=== PATIENT | female | born 1980 | race American Indian/Alaskan Native ===

== ENCOUNTER 2017-03-09 18:50 | Emergency (ER) | payer SELFPAY ==
[2017-03-09 19:06] VITALS: TEMP 97.4
[2017-03-09] MEDS ORDERED: Sodium Chloride 0.9% 1,000 ML IV STA (19:36)
--- NOTE | 2017-03-09 19:43 | ED PDOC ---
Arrival/HPI - General Chief Complaint: Abdominal Pain Time Seen by Provider: 03/09/17 19:27 Historian: Patient - History of Present Illness Narrative History of Present Illness (Text): 03/09/17 19:31 A 36 year old female, with no significant past medical history, presents to the emergency department complaining of abdominal discomfort with associated nausea and vomiting for the past week. Patient reports also experiencing dizziness specifically to the right-side of head for few days. Patient denies any fever, chills, diarrhea, head trauma, visual disturbance, urinary problems, dysuria, appetite changes, vaginal discharge, or any other complaints. LMP 2 weeks ago. No PMD Time/Duration: 1 week Symptom Onset: Sudden Symptom Course: Unchanged Past Medical History - Provider Review Nursing Documentation Reviewed: Yes - Infectious Disease Hx of Infectious Diseases: None - Psychiatric Hx Substance Use: No - Anesthesia Hx Anesthesia: No Family/Social History - Physician Review Nursing Documentation Reviewed: Yes Family/Social History: No Known Family HX Smoking Status: Never Smoked Hx Alcohol Use: No Hx Substance Use: No Allergies/Home Meds Allergies/Adverse Reactions: Allergies No Known Allergies Allergy (Verified 03/09/17 19:02) Review of Systems - Physician Review All systems were reviewed & negative as marked: Yes - Review of Systems Constitutional: absent: Fevers, Night Sweats, Other (no head trauma) Eyes: absent: Vision Changes (no visual disturbances) Gastrointestinal: Abdominal Pain (abdominal discomfort), Nausea, Vomiting. absent: Diarrhea, Appetite Changes Genitourinary Female: absent: Dysuria, Frequency, Urine Output Changes, Vaginal Discharge Neurological: Dizziness (specifically right side of head) Physical Exam Vital Signs Reviewed: Yes Vital Signs Temp Pulse Resp BP Pulse Ox 03/09/17 23:17 80 16 118/72 98 03/09/17 19:03 97.4 F L 68 18 112/61 100 Temperature: Afebrile Blood Pressure: Normal Pulse: Regular Respiratory Rate: Normal Appearance: Positive for: Well-Appearing Pain Distress: None Mental Status: Positive for: Alert and Oriented X 3 - Systems Exam Head: Present: Atraumatic, Normocephalic Pupils: Present: PERRL Extroacular Muscles: Present: EOMI Conjunctiva: Present: Normal Ears: Present: NORMAL TM Mouth: Present: Moist Mucous Membranes Pharnyx: Present: Normal. No: ERYTHEMA Neck: Present: Normal Range of Motion Respiratory/Chest: Present: Clear to Auscultation, Good Air Exchange. No: Respiratory Distress, Accessory Muscle Use Cardiovascular: Present: Regular Rate and Rhythm, Normal S1, S2. No: Murmurs Abdomen: Present: Normal Bowel Sounds. No: Tenderness, Distention, Peritoneal Signs Back: Present: Normal Inspection Upper Extremity: Present: Normal Inspection. No: Cyanosis, Edema Lower Extremity: Present: Normal Inspection. No: Edema Neurological: Present: GCS=15, CN II-XII Intact, Speech Normal, Motor Func Grossly Intact, Normal Sensory Function Skin: Present: Warm, Dry, Normal Color. No: Rashes Psychiatric: Present: Alert, Oriented x 3, Normal Insight, Normal Concentration Medical Decision Making ED Course and Treatment: 03/09/17 19:35 Impression: 36 year old female with abdominal discomfort with associated nausea and vomiting. Physical exam is benign. Plan: -- Head CT -- Labs -- Urinalysis -- Reassess and disposition Progress Notes: CT Head Without Intravenous Contrast FINDINGS: Brain: No hemorrhage. No significant white matter disease. No edema. Ventricles: No hydrocephalus. Bones: Skull is intact. Sinuses: No acute sinusitis. Mastoid air cells: No mastoid effusion. Motion/beam hardening limiting evaluation. IMPRESSION: No CT evidence of acute intracranial abnormality. Dictated and Authenticated by: Bee Marquez MD 03/09/2017 9:05 PM Eastern Time ([place] & [place]) CT Abdomen and Pelvis With Intravenous Contrast FINDINGS: Lower thorax: Mosaic attenuation at the lung bases. ABDOMEN: Liver: No acute abnormality as visualized. No mass. Gallbladder and bile ducts: Status post cholecystectomy with biliary ductal dilatation. Pancreas: No acute abnormality as visualized. Spleen: No splenomegaly. Adrenals: No acute abnormality as visualized. Kidneys and ureters: Symmetric enhancement. No hydronephrosis. Stomach and bowel: Limited evaluation without enteric contrast. Retained fecal material in the colon. No obstruction. Appendix: Normal caliber appendix. PELVIS: Bladder: No acute abnormality as visualized. No mass. Reproductive: 3 cm left ovarian cyst. More sensitive evaluation of the pelvic viscera can be performed with dedicated ultrasound. ABDOMEN and PELVIS: Intraperitoneal space: No free air. No significant fluid collection. Bones: Mild degenerative changes. Soft tissues: No acute abnormality as visualized. Vasculature: No abdominal aortic aneurysm. Lymph nodes: No acute abnormality as visualized. IMPRESSION: 3 cm left ovarian cyst. More sensitive evaluation of the pelvic viscera can be performed with dedicated ultrasound. Limited evaluation of bowel without enteric contrast. Retained fecal material in the colon. Status post cholecystectomy with biliary ductal dilatation. Additional details/findings as above. Dictated and Authenticated by: Bee Marquez MD 03/10/2017 12:12 AM Eastern Time ([place] & [place]) 03/10/17 00:32 On re-evaluation, patient feels better and is in no acute distress. I have discussed the results and plan with the patient, who expresses understanding. Patient in agreement with plan to be discharged home. Patient is stable for discharge. Patient was instructed to follow up with physician or return if symptoms worsen or new concerning symptoms arise. - Lab Interpretations Lab Results: 03/09/17 19:50 03/09/17 19:50 Lab Results 03/09/17 19:50: WBC 9.6, RBC 4.14, Hgb 11.9 L, Hct 37.2, MCV 89.9, MCH 28.7, MCHC 32.0, RDW 16.0 H, Plt Count 360, MPV 9.9 03/09/17 19:50: Sodium 139, Potassium 3.9, Chloride 107, Carbon Dioxide 21, Anion Gap 14, BUN 11, Creatinine 0.7, Est GFR ( Amer) > 60, Est GFR (Non- Af Amer) > 60, Random Glucose 85, Calcium 9.2, Total Bilirubin 0.5, AST 41 H, ALT 31, Alkaline Phosphatase 65, Total Protein 7.9, Albumin 4.3, Globulin 3.6, Albumin/Globulin Ratio 1.2, Lipase 57 03/09/17 19:50: Urine Color Light yellow, Urine Appearance Clear, Urine pH 6.0, Ur Specific [place] >= 1.030, Urine Protein Trace H, Urine Glucose (UA) Negative , Urine Ketones Negative, Urine Blood Negative, Urine Nitrate Negative, Urine Bilirubin Negative, Urine Urobilinogen 0.2, Ur Leukocyte Esterase Negative, Urine RBC 0 - 2, Urine WBC 1 - 3, Ur Epithelial Cells 6 - 8, Urine Bacteria Mod , Urine HCG, Qual Negative - RAD Interpretation Radiology Orders: 03/09/17 19:35 HEAD W/O CONTRAST [CT] Stat 03/09/17 22:34 ABD & PELVIS IV CONTRAST ONLY [CT] Stat - Medication Orders Current Medication Orders: Discontinued Medications Famotidine (Pepcid) 20 mg IVP STAT STA Stop: 03/09/17 19:37 Last Admin: 03/09/17 20:00 Dose: 20 mg IVP Administration Document 03/09/17 20:00 AD (Rec: 03/09/17 20:01 AD [id number]) Charges for Administration # of IVP Administrations 1 Sodium Chloride (Sodium Chloride 0.9%) 1,000 mls @ 999 mls/hr IV .Q1H1M STA Stop: 03/09/17 20:36 Last Admin: 03/09/17 20:01 Dose: 999 mls/hr eMAR Start Stop Document 03/09/17 20:01 AD (Rec: 03/09/17 20:01 AD [id number]) Intravenous Solution Start Date 03/09/17 Start Time 20:01 Ketorolac Tromethamine (Toradol) 30 mg IVP ONCE ONE Stop: 03/09/17 22:35 Last Admin: 03/09/17 23:00 Dose: 30 mg MAR Pain Assessment Document 03/09/17 23:00 AD (Rec: 03/09/17 23:00 AD [id number]) Pain Reassessment Is this a pain reassessment? No Presence of Pain Presence of Pain Yes Pain Scale Used Pain Scale Used Numeric Description Intensity of Pain at present 8 IVP Administration Document 03/09/17 23:00 AD (Rec: 03/09/17 23:00 AD [id number]) Charges for Administration # of IVP Administrations 1 - Scribe Statement The provider has reviewed the documentation as recorded by the Aiyana Malcolm Provider Scribe Attestation: All medical record entries made by the Lolaibcheikh were at my direction and personally dictated by me. I have reviewed the chart and agree that the record accurately reflects my personal performance of the history, physical exam, medical decision making, and the department course for this patient. I have also personally directed, reviewed, and agree with the discharge instructions and disposition. Disposition/Present on Arrival - Present on Arrival Any Indicators Present on Arrival: No History of DVT/PE: No History of Uncontrolled Diabetes: No Urinary Catheter: No History of Decub. Ulcer: No History Surgical Site Infection Following: None - Disposition Have Diagnosis and Disposition been Completed?: Yes Diagnosis: Ovarian cyst Disposition: HOME/ ROUTINE Disposition Time: 00:32 Patient Plan: Discharge Patient Problems: Current Active Problems Problem Status Onset Ovarian cyst Acute Condition: GOOD Discharge Instructions (ExitCare): Ovarian Cyst (ED) Additional Instructions: Take meds as prescribed/follow up with your doctor this week Prescriptions: Naproxen [Naprosyn] 500 mg PO BID PRN #14 tab PRN Reason: Pain Referrals: [facility] Luis Req, [Primary Care Provider] - Follow up with primary Forms: [employer] (Greek)
[2017-03-09 20:30] LABS: ALB/GLOB RATIO 1.2 (1.1-1.8); ALKALINE PHOSPHATASE 65 U/L (38-126); ALT/SGPT 31 U/L (7-56); AST/SGOT 41 U/L (14-36); BILIRUBIN,TOTAL 0.5 mg/dL (0.2-1.3); BLOOD UREA NITROGEN 11 mg/dL (7-21); CALCIUM 9.2 mg/dL (8.4-10.5); CARBON DIOXIDE 21 mmol/L (21-33); CHLORIDE 107 mmol/L (98-107); GFR AFRICAN-AMERICAN > 60; GLUCOSE,RANDOM 85 mg/dL (70-110); LIPASE 57 U/L (23-300); POTASSIUM 3.9 mmol/L (3.6-5.0); SODIUM 139 mmol/L (132-148); TOTAL PROTEIN 7.9 g/dL (5.8-8.3)
[2017-03-09 20:44] LABS: HEMATOCRIT 37.2 % (36.0-48.0); MEAN CELL VOLUME 89.9 fl (80.0-105.0); MEAN CORPUSCULAR HEMOGLOBIN 28.7 pg (25.0-35.0); MEAN PLATELET VOLUME 9.9 fl (7.0-11.0); WHITE BLOOD COUNT 9.6 10^3/ul (4.5-11.0)
[2017-03-09 20:45] LABS: URINE BILIRUBIN NEGATIVE (NEGATIVE); URINE BLOOD NEGATIVE (NEGATIVE); URINE GLUCOSE (UA) NEGATIVE (NEGATIVE); URINE KETONE NEGATIVE (NEGATIVE); URINE LEUKOCYTE ESTERASE NEGATIVE Leu/uL (NEGATIVE); URINE PROTEIN TRACE mg/dL (<30 mg/dL); URINE UROBILINOGEN 0.2 E.U./dL (<1 E.U./dL)
[2017-03-09 20:46] LABS: URINE APPEARANCE CLEAR (CLEAR); URINE COLOR LIGHT YELLOW (YELLOW)
--- NOTE | 2017-03-09 21:06 | CT ---
EXAM: CT Head Without Intravenous Contrast CLINICAL HISTORY: 36 years old, female; Signs and symptoms; Dizziness TECHNIQUE: Axial computed tomography images of the head/brain without intravenous contrast. All CT scans at this facility use one or more dose reduction techniques, viz.: automated exposure control; ma/kV adjustment per patient size (including targeted exams where dose is matched to indication; i.e. head); or iterative reconstruction technique. COMPARISON: No relevant prior studies available. FINDINGS: Brain: No hemorrhage. No significant white matter disease. No edema. Ventricles: No hydrocephalus. Bones: Skull is intact. Sinuses: No acute sinusitis. Mastoid air cells: No mastoid effusion. Motion/beam hardening limiting evaluation. IMPRESSION: No CT evidence of acute intracranial abnormality.
[2017-03-09 21:16] LABS: URINE RBC 0 - 2 /hpf (0-2)
[2017-03-09 21:17] LABS: URINE BACTERIA MOD (NEG)
[2017-03-09] MEDS ORDERED: Iohexol 350 MG/100 ML VIAL ONE (23:03)
[2017-03-09 23:18] VITALS: BP 118/72; PULSE 80; RESP 16; O2SAT 98
--- NOTE | 2017-03-10 00:13 | CT ---
EXAM: CT Abdomen and Pelvis With Intravenous Contrast CLINICAL HISTORY: 36 years old, female; Pain; Abdominal pain; Generalized; Prior surgery; Surgery date: 6+ months; Surgery type: HX cholecystectomy TECHNIQUE: Axial computed tomography images of the abdomen and pelvis with intravenous contrast. All CT scans at this facility use one or more dose reduction techniques, viz.: automated exposure control; ma/kV adjustment per patient size (including targeted exams where dose is matched to indication; i.e. head); or iterative reconstruction technique. Coronal and sagittal reformatted images were created and reviewed. CONTRAST: 100 mL of OMNI 350 administered intravenously. COMPARISON: No relevant prior studies available. FINDINGS: Lower thorax: Mosaic attenuation at the lung bases. ABDOMEN: Liver: No acute abnormality as visualized. No mass. Gallbladder and bile ducts: Status post cholecystectomy with biliary ductal dilatation. Pancreas: No acute abnormality as visualized. Spleen: No splenomegaly. Adrenals: No acute abnormality as visualized. Kidneys and ureters: Symmetric enhancement. No hydronephrosis. Stomach and bowel: Limited evaluation without enteric contrast. Retained fecal material in the colon. No obstruction. Appendix: Normal caliber appendix. PELVIS: Bladder: No acute abnormality as visualized. No mass. Reproductive: 3 cm left ovarian cyst. More sensitive evaluation of the pelvic viscera can be performed with dedicated ultrasound. ABDOMEN and PELVIS: Intraperitoneal space: No free air. No significant fluid collection. Bones: Mild degenerative changes. Soft tissues: No acute abnormality as visualized. Vasculature: No abdominal aortic aneurysm. Lymph nodes: No acute abnormality as visualized. IMPRESSION: 3 cm left ovarian cyst. More sensitive evaluation of the pelvic viscera can be performed with dedicated ultrasound. Limited evaluation of bowel without enteric contrast. Retained fecal material in the colon. Status post cholecystectomy with biliary ductal dilatation. Additional details/findings as above.
== END 2017-03-10 00:42 | disposition home or self-care (01) ==
LOC: ED 18:50
DX: N83.202 Unspecified ovarian cyst, left side (principal)
CPT/HCPCS: 70450; 74177; 80053; 81001; 83690; 84703; 85027; 96374; 96375; 99284; J1885; J7040; Q9967

== ENCOUNTER 2017-04-04 09:08 | Emergency (ER) | payer SELFPAY ==
[2017-04-04 09:10] VITALS: BMI 44.2
--- NOTE | 2017-04-04 09:15 | ED PDOC ---
Arrival/HPI - General Time Seen by Provider: 04/04/17 09:11 Historian: Patient - History of Present Illness Narrative History of Present Illness (Text): 04/04/17 09:15 36 y/o female, pmh including ovarian cyst, nkda, c/o anterior chest pain x 1 week with no fall or trauma. Pt. stated that she has been going to the gym recently, admits heavy lifting, been having anterior chest pain for the past 1 week, aggravated by touching, no numbness or tingling, no numbness or tingling, no tearing pain, no coughing, no night sweat, no dizziness, no rash, no other medical or psychological complaints. Past Medical History - Provider Review Nursing Documentation Reviewed: Yes - Infectious Disease Hx of Infectious Diseases: None - Psychiatric Hx Substance Use: No - Anesthesia Hx Anesthesia: No Family/Social History - Physician Review Nursing Documentation Reviewed: Yes Family/Social History: Unknown Family HX Smoking Status: Never Smoked Hx Alcohol Use: No Hx Substance Use: No Allergies/Home Meds Allergies/Adverse Reactions: Allergies No Known Allergies Allergy (Verified 04/04/17 09:10) Review of Systems - Review of Systems Constitutional: absent: Fatigue, Fevers Eyes: absent: Vision Changes ENT: absent: Hearing Changes Respiratory: absent: SOB, Cough Cardiovascular: Chest Pain Gastrointestinal: absent: Abdominal Pain, Diarrhea, Nausea, Vomiting Musculoskeletal: absent: Arthralgias, Back Pain, Myalgias Skin: absent: Rash, Pruritis, Skin Lesions Neurological: absent: Headache, Dizziness Psychiatric: absent: Anxiety, Depression, Suicidal Ideation Physical Exam Vital Signs Reviewed: Yes Vital Signs Temp Pulse Pulse Resp BP Pulse Ox 04/04/17 16:49 66 18 117/65 99 04/04/17 13:26 97.7 F 74 22 122/86 97 04/04/17 09:25 59 L 04/04/17 09:20 98.4 F 61 19 110/52 L 98 04/04/17 09:19 98.4 F 61 19 110/52 L 100 Temperature: Afebrile Pulse: Regular Respiratory Rate: Normal Appearance: Positive for: Well-Appearing, Non-Toxic, Comfortable Pain Distress: Moderate Mental Status: Positive for: Alert and Oriented X 3 - Systems Exam Head: Present: Atraumatic, Normocephalic Pupils: Present: PERRL Extroacular Muscles: Present: EOMI Conjunctiva: Present: Normal Mouth: Present: Moist Mucous Membranes Neck: Present: Normal Range of Motion Respiratory/Chest: Present: Clear to Auscultation, Good Air Exchange. No: Respiratory Distress, Accessory Muscle Use, Wheezes, Decreased Breath Sounds, Rales, Retracting, Rhonchi, Tachypneic, Tender to Palpation Cardiovascular: Present: Regular Rate and Rhythm, Normal S1, S2, Other (no pedal edema. Pain is 100% reproducible by palpating the anterior pectoralist major muscles bilaterally, no cva tenderness, no rash. ). No: Murmurs Abdomen: Present: Normal Bowel Sounds. No: Tenderness, Distention, Peritoneal Signs Back: Present: Normal Inspection Upper Extremity: Present: Normal Inspection. No: Cyanosis, Edema Lower Extremity: Present: Normal Inspection. No: Edema Neurological: Present: GCS=15, Speech Normal, Motor Func Grossly Intact, Gait Normal, Memory Normal Skin: Present: Warm, Dry, Normal Color. No: Rashes Psychiatric: Present: Alert, Oriented x 3, Normal Insight, Normal Concentration Medical Decision Making ED Course and Treatment: 04/04/17 09:17 -labs/dimer/troponin -ekg -cxr -IVF/toradol/pepcid -observe and reassess 04/04/17 13:27 -Pain decreased with the toradol and pepcid. -Urine hcg negative -EKG: SB @ 57 BPM, no ST elevation or depression, T wave inversion on lead III with no previous comparison -Labs are non-significant except d-dimer 646 -UA show no UTI. -CTA ordered, cancel chest xray -We tried multiple attempts and unable to get peripheral access even with the sonogram bed side, spoke to the technology and engineering teacher and it has been from upper extremity access. 04/04/17 17:40 -Case discussed with Dr. Joy including labs/radiology, he agreed to discharged home. -Pt. received the CTA without midline and able to obtain peripheral. -CTA: Unremarkable CT pulmonary angiogram. No pulmonary embolus. -Pt. is asymptomatic, no cardiopulmonary complaints, stable to be discharged home. -Discharge home with naproxen, pepcid, follow up with your own pmd and barrel roller operator within 2 days, no gym or exercise until clear by pmd and barrel roller operator, return to the ER for any new or worsening signs or symptoms. - Lab Interpretations Lab Results: 04/04/17 09:58 04/04/17 09:58 Lab Results 04/04/17 09:58: Sodium 140, Potassium 4.1, Chloride 107, Carbon Dioxide 24, Anion Gap 13, BUN 9, Creatinine 0.6 L, Est GFR ( Amer) > 60, Est GFR (Non -Af Amer) > 60, Random Glucose 81, Calcium 9.2, Total Bilirubin 0.5, AST 36, ALT 32, Alkaline Phosphatase 59, Lactate Dehydrogenase 405, Total Creatine Kinase 201, Troponin I < 0.01, Total Protein 7.5, Albumin 4.1, Globulin 3.5, Albumin/Globulin Ratio 1.2, Lipase 36 04/04/17 09:58: Urine Color Yellow, Urine Appearance Slight-cloudy, Urine pH 7.0 , Ur Specific [place] 1.020, Urine Protein Trace H, Urine Glucose (UA) Negative , Urine Ketones Negative, Urine Blood Negative, Urine Nitrate Negative, Urine Bilirubin Negative, Urine Urobilinogen 1.0 H, Ur Leukocyte Esterase Negative, Urine RBC 1 - 3, Urine WBC 1 - 3, Ur Epithelial Cells 3 - 4 04/04/17 09:58: D-Dimer, Quantitative 646 H 04/04/17 09:58: WBC 5.2 D, RBC 4.20, Hgb 12.0, Hct 37.5, MCV 89.3, MCH 28.6, MCHC 32.0, RDW 16.0 H, Plt Count 299, MPV 9.5, Gran % 54.7, Lymph % (Auto) 37.4 H, [place] % (Auto) 5.6, Eos % (Auto) 1.7, Baso % (Auto) 0.6, Gran # 2.82, Lymph # 1.9, [place] # 0.3, Eos # 0.1, Baso # 0.03 I have reviewed the lab results: Yes - RAD Interpretation Radiology Orders: 04/04/17 13:59 ANGIO CHEST PE PROTOCOL [CT] Stat This report is currently processing and HAS NOT BEEN OFFICIALLY SIGNED BY THE PHYSICIAN - ESTIMATED TIME OF APPROVAL IS 04/04/2017 17:42. PROCEDURE: CT Chest with contrast (Pulmonary Angiogram) HISTORY: elevated dimer, pleuritic chest pain, r/o pe COMPARISON: None available. TECHNIQUE: Axial computed tomography images were obtained of the chest in the pulmonary arterial phase of enhancement. Coronal and sagittal reformatted images were created and reviewed. Intravenous contrast dose: 100 cc Visipaque 320. Mean Hounsfield unit values in the main pulmonary artery: 249.51 Radiation dose: Total exam DLP = 447.35 mGy-cm. This CT exam was performed using one or more of the following dose reduction techniques: Automated exposure control, adjustment of the mA and/or kV according to patient size, and/or use of iterative reconstruction technique. FINDINGS: PULMONARY ARTERIES: Unremarkable. No pulmonary embolism. AORTA: No acute findings. No thoracic aortic aneurysm. LUNGS: Unremarkable. No nodule, mass or pulmonary consolidation. PLEURAL SPACES: Unremarkable. No effusion or pneuomothorax. HEART: Unremarkable. No cardiomegaly. No significant pericardial effusion. LYMPH NODES: No lymphadenopathy. BONES, CHEST WALL: Unremarkable. No fracture or destructive lesion OTHER FINDINGS: Unremarkable. IMPRESSION: Unremarkable CT pulmonary angiogram. No pulmonary embolus. Office Sweeper: Radiologist - EKG Interpretation EKG Interpretation (Text): 04/04/17 09:16 -EKG: SB @ 57 BPM, no ST elevation or depression, T wave inversion on lead III with no previous comparison, Interpreted by ED Physician: Yes Type: 12 lead EKG - Medication Orders Current Medication Orders: Sodium Chloride (Sodium Chloride 0.9%) 1,000 mls @ 100 mls/hr IV .Q10H MALLIKA Last Admin: 04/04/17 09:51 Dose: 100 mls/hr eMAR Start Stop Document 04/04/17 09:51 [email or web address] (Rec: 04/04/17 09:51 [email or web address] [id number]) Intravenous Solution Start Date 04/04/17 Start Time 09:51 End Date 04/04/17 Discontinued Medications Famotidine (Pepcid) 20 mg PO STAT STA Stop: 04/04/17 09:24 Last Admin: 04/04/17 09:50 Dose: 20 mg Ketorolac Tromethamine (Toradol) 30 mg IVP STAT STA Stop: 04/04/17 09:24 Last Admin: 04/04/17 09:50 Dose: 30 mg MAR Pain Assessment Document 04/04/17 09:50 [email or web address] (Rec: 04/04/17 09:51 [email or web address] [id number]) Pain Reassessment Is this a pain reassessment? No Sleep Is patient sleeping during reassessment? No Presence of Pain Presence of Pain Yes Pain Scale Used Pain Scale Used Numeric Location Pain Location Body Site Chest Description Description Constant Intensity of Pain at present 9 Pain Behavior Facial Grimacing Aggravating Factors Changing Position Alleviating Factors/Management Medication Techniques Alleviating Factors Medication IVP Administration Document 04/04/17 09:50 [email or web address] (Rec: 04/04/17 09:51 [email or web address] [id number]) Charges for Administration # of IVP Administrations 1 - PA / MORNING BABYSITTER / Resident Statement MD/DO has reviewed & agrees with the documentation as recorded. Disposition/Present on Arrival - Present on Arrival Any Indicators Present on Arrival: No History of DVT/PE: No History of Uncontrolled Diabetes: No Urinary Catheter: No History of Decub. Ulcer: No History Surgical Site Infection Following: None - Disposition Have Diagnosis and Disposition been Completed?: Yes Diagnosis: Atypical chest pain Disposition: HOME/ ROUTINE Disposition Time: 17:43 Patient Plan: Discharge Condition: IMPROVED Discharge Instructions (ExitCare): Chest Pain (ED) Print Language: MALIAN Additional Instructions: -Discharge home with naproxen, pepcid, follow up with your own pmd and barrel roller operator within 2 days, no gym or exercise until clear by pmd and barrel roller operator, return to the ER for any new or worsening signs or symptoms. Prescriptions: Famotidine [Pepcid] 20 mg PO BID #14 tab Naproxen 500 mg PO BID PRN #24 tab PRN Reason: Other Referrals: PCP,NO [Primary Care Provider] - Follow up with primary Kevin Roberson MD [Staff Provider] - Follow up with primary [facility] at [facility] [place] [Outside] - Follow up with primary Forms: WORK NOTE
[2017-04-04] MEDS ORDERED: Sodium Chloride 0.9% 1,000 ML IV SCH (09:30)
[2017-04-04 10:07] LABS: BASO # 0.03 K/mm3 (0.0-2.0); BASO % 0.6 % (0.0-3.0); EOS # 0.1 (0.0-0.7); EOS % 1.7 % (1.5-5.0); GRAN # 2.82 (1.4-6.5); GRAN % 54.7 % (50.0-68.0); LYMPH # 1.9 (1.2-3.4); LYMPH % 37.4 % (22.0-35.0); MEAN CELL VOLUME 89.3 fl (80.0-105.0); MEAN CORPUSCULAR HEMOGLOBIN 28.6 pg (25.0-35.0); MEAN PLATELET VOLUME 9.5 fl (7.0-11.0); MONO # 0.3 (0.1-0.6); MONO % 5.6 % (1.0-6.0); RBC 4.2 10^6/uL (3.5-6.1); WHITE BLOOD COUNT 5.2 10^3/ul (4.5-11.0)
[2017-04-04 10:08] LABS: URINE BILIRUBIN NEGATIVE (NEGATIVE); URINE BLOOD NEGATIVE (NEGATIVE); URINE GLUCOSE (UA) NEGATIVE (NEGATIVE); URINE LEUKOCYTE ESTERASE NEGATIVE Leu/uL (NEGATIVE); URINE NITRATE NEGATIVE (NEGATIVE); URINE PROTEIN TRACE mg/dL (<30 mg/dL)
[2017-04-04 10:09] LABS: URINE APPEARANCE SLIGHT-CLOUDY (CLEAR); URINE COLOR YELLOW (YELLOW)
[2017-04-04 10:16] LABS: ALB/GLOB RATIO 1.2 (1.1-1.8); ALBUMIN 4.1 g/dL (3.0-4.8); ALT/SGPT 32 U/L (7-56); AST/SGOT 36 U/L (14-36); BLOOD UREA NITROGEN 9 mg/dL (7-21); CALCIUM 9.2 mg/dL (8.4-10.5); GFR AFRICAN-AMERICAN > 60; GFR NON-AFRICAN AMERICAN > 60; LIPASE 36 U/L (23-300)
[2017-04-04 10:31] LABS: TROPONIN I < 0.01 ng/mL
[2017-04-04] MEDS ORDERED: Iohexol 350 MG/100 ML VIAL ONE (10:34)
[2017-04-04 13:27] VITALS: TEMP 97.7
[2017-04-04] MEDS ORDERED: Iodixanol 320 MG/ML 100 ML BOTTLE IV ONE (16:42)
[2017-04-04 16:50] VITALS: BP 117/65; PULSE 66; O2SAT 99
--- NOTE | 2017-04-04 17:37 | CT ---
PROCEDURE: CT Chest with contrast (Pulmonary Angiogram) HISTORY: elevated dimer, pleuritic chest pain, r/o pe COMPARISON: None available. TECHNIQUE: Axial computed tomography images were obtained of the chest in the pulmonary arterial phase of enhancement. Coronal and sagittal reformatted images were created and reviewed. Intravenous contrast dose: 100 cc Visipaque 320. Mean Hounsfield unit values in the main pulmonary artery: 249.51 Radiation dose: Total exam DLP = 447.35 mGy-cm. This CT exam was performed using one or more of the following dose reduction techniques: Automated exposure control, adjustment of the mA and/or kV according to patient size, and/or use of iterative reconstruction technique. FINDINGS: PULMONARY ARTERIES: Unremarkable. No pulmonary embolism. AORTA: No acute findings. No thoracic aortic aneurysm. LUNGS: Unremarkable. No nodule, mass or pulmonary consolidation. PLEURAL SPACES: Unremarkable. No effusion or pneuomothorax. HEART: Unremarkable. No cardiomegaly. No significant pericardial effusion. LYMPH NODES: No lymphadenopathy. BONES, CHEST WALL: Unremarkable. No fracture or destructive lesion OTHER FINDINGS: Unremarkable. IMPRESSION: Unremarkable CT pulmonary angiogram. No pulmonary embolus.
[2017-04-04 18:00] VITALS: RESP 19
--- NOTE | 2017-04-04 20:04 | CARD ---
APPROVED REPORT EKG Measurement Heart [id number] <Conclusion> Sinus bradycardia Otherwise normal ECG
== END 2017-04-04 17:59 | disposition home or self-care (01) ==
LOC: ED 09:08
DX: R07.89 Other chest pain (principal)
CPT/HCPCS: 71275; 80053; 81001; 82550; 83615; 83690; 84484; 85025; 85378; 93005; 96374; 99283; J1885; J7040; Q9967

== ENCOUNTER 2017-10-05 19:18 | Observation (INO) | payer BC ==
[2017-10-05 19:20] VITALS: BMI 44.2
--- NOTE | 2017-10-05 21:52 | ED PDOC ---
Arrival/HPI - General Chief Complaint: Headache Time Seen by Provider: 10/05/17 19:44 Historian: Patient - History of Present Illness Narrative History of Present Illness (Text): 10/05/17 21:51 Roya Pineda is a 37 year old female, with no significant past medical history , who presents to the Emergency department complaining of chest pain and near- syncope. Patient states she has been experiencing intermittent sharp mid- sternal chest pain radiating to down her right arm for the past week. Patient notes she feels dizzy/light-headed and near-syncopal at times with associated headache. Patient denies any fever, chills, shortness of breath, abdominal pain , nausea, back pain, neck pain, or any other complaints. Symptom Onset: Gradual Symptom Course: Unchanged Activities at Onset: Light Context: Home Past Medical History - Provider Review Nursing Documentation Reviewed: Yes - Infectious Disease Hx of Infectious Diseases: None - Cardiac Hx Cardiac Disorders: No - Pulmonary Hx Respiratory Disorders: No - Neurological Hx Neurological Disorder: No - HEENT Hx HEENT Disorder: No - Renal Hx Renal Disorder: No - Endocrine/Metabolic Hx Endocrine Disorders: No - Hematological/Oncological Hx Blood Disorders: No - Integumentary Hx Dermatological Disorder: No - Musculoskeletal/Rheumatological Hx Musculoskeletal Disorders: No - Gastrointestinal Hx Gastrointestinal Disorders: No - Genitourinary/Gynecological Hx Genitourinary Disorders: No - Psychiatric Hx Psychophysiologic Disorder: No Hx Substance Use: No - Anesthesia Hx Anesthesia: No Family/Social History - Physician Review Nursing Documentation Reviewed: Yes Family/Social History: Unknown Family HX Smoking Status: Never Smoked Hx Alcohol Use: No Hx Substance Use: No Allergies/Home Meds Allergies/Adverse Reactions: Allergies No Known Allergies Allergy (Verified 10/05/17 20:23) Home Medications: Home Meds Medication Instructions Recorded Confirmed No Known Home Med 10/05/17 10/05/17 Review of Systems - Physician Review All systems were reviewed & negative as marked: Yes - Review of Systems Constitutional: Normal. absent: Fevers Eyes: Normal ENT: Normal Respiratory: Normal. absent: SOB, Cough Cardiovascular: Chest Pain, Other (+near-syncopal) Gastrointestinal: Normal. absent: Abdominal Pain, Diarrhea, Nausea, Vomiting Genitourinary Female: Normal. absent: Dysuria, Frequency, Hematuria, Urine Output Changes Musculoskeletal: Normal. absent: Back Pain, Neck Pain Skin: Normal. absent: Rash Neurological: Headache, Dizziness Endocrine: Normal Hemo/Lymphatic: Normal Psychiatric: Normal Physical Exam Vital Signs Reviewed: Yes Vital Signs Temp Pulse Resp BP Pulse Ox 10/06/17 02:30 98.1 F 55 L 18 93/48 L 97 10/05/17 23:00 98.2 F 57 L 14 95/52 L 98 10/05/17 20:21 98.1 F 64 18 105/55 L 99 Temperature: Afebrile Blood Pressure: Normal Pulse: Regular Respiratory Rate: Normal Appearance: Positive for: Well-Appearing, Non-Toxic, Comfortable Pain Distress: None Mental Status: Positive for: Alert and Oriented X 3 - Systems Exam Head: Present: Atraumatic, Normocephalic Pupils: Present: PERRL Extroacular Muscles: Present: EOMI Conjunctiva: Present: Normal Mouth: Present: Moist Mucous Membranes Neck: Present: Normal Range of Motion. No: Meningeal Signs, MIDLINE TENDERNESS , Paraspinal Tenderness Respiratory/Chest: Present: Clear to Auscultation, Good Air Exchange. No: Respiratory Distress, Accessory Muscle Use Cardiovascular: Present: Regular Rate and Rhythm, Normal S1, S2. No: Murmurs Abdomen: No: Tenderness, Distention, Peritoneal Signs Back: Present: Normal Inspection. No: CVA Tenderness, Midline Tenderness, Paraspinal Tenderness Upper Extremity: Present: Normal Inspection. No: Cyanosis, Edema Lower Extremity: Present: Normal Inspection. No: Edema Neurological: Present: GCS=15, CN II-XII Intact, Speech Normal Skin: Present: Warm, Dry, Normal Color. No: Rashes Psychiatric: Present: Alert, Oriented x 3, Normal Insight, Normal Concentration Medical Decision Making ED Course and Treatment: 10/05/17 21:51 Impression: 37 year old female complaining of chest pain, dizziness, light-headedness, near- syncope, and headache. Plan: -- CT Head w/o contrast -- EKG -- Chest X-ray -- Labs, cardiac enzymes -- Reassess and disposition Progress Notes: Reviewed EKG, NSR at [address]-segment elevations or depressions, no T- wave inversions, normal intervals. 10/05/17 23:26 Chest X-ray reviewed, shows no acute processes. 10/06/17 01:10 CT Head shows: Brain: No intracranial hemorrhage. No significant white matter disease. No evidence of evolved territorial infarct. No mass effect or midline shift. Ventricles: Unremarkable. No ventriculomegaly. Bones/joints: No acute osseous abnormality. Soft tissues: No soft tissue swelling. Sinuses: Visualized paranasal sinuses are clear. Mastoid air cells: Mastoid air cells are well-aerated. IMPRESSION: No acute findings. 10/06/17 02:[address] Snider, who is aware and agrees with plan. Accepts pt in to her service. Pt will go to Telemetry observation for chest pain and near- syncope. Requests Dr. Oates and Dr. Mon on consult. - Lab Interpretations Lab Results: 10/06/17 00:02 10/06/17 00:02 Lab Results 10/06/17 00:02: WBC 9.3 D, RBC 4.02, Hgb 11.1 L, Hct 34.2 L, MCV 85.1 D, MCH 27.6, MCHC 32.5, RDW 15.1 H, Plt Count 356, MPV 9.4 10/06/17 00:02: Sodium 140, Potassium 3.9, Chloride 105, Carbon Dioxide 24, Anion Gap 15, BUN 13, Creatinine 0.5 L, Est GFR ( Amer) > 60, Est GFR ( Non-Af Amer) > 60, Random Glucose 83, Calcium 8.8, Total Bilirubin 0.5, AST 35, ALT 26, Alkaline Phosphatase 61, Lactate Dehydrogenase 339, Total Creatine Kinase 59, Troponin I < 0.01, Total Protein 7.3, Albumin 3.9, Globulin 3.4, Albumin/Globulin Ratio 1.1 10/06/17 00:02: PT 12.5, INR 1.09 H, APTT 29.2 I have reviewed the lab results: Yes - RAD Interpretation Radiology Orders: 10/05/17 21:53 HEAD W/O CONTRAST [CT] Stat 10/05/17 21:55 CHEST PORTABLE [RAD] Stat Behavioral Health Consultant: ED Physician, Radiologist - EKG Interpretation Interpreted by ED Physician: Yes Type: 12 lead EKG - Medication Orders Current Medication Orders: Discontinued Medications Aspirin (Aspirin) 325 mg PO ONCE STA Stop: 10/06/17 02:29 Last Admin: 10/06/17 02:50 Dose: 325 mg - Scribe Statement The provider has reviewed the documentation as recorded by the Aiyana Lucio Provider Scribe Attestation: All medical record entries made by the Aiyana were at my direction and personally dictated by me. I have reviewed the chart and agree that the record accurately reflects my personal performance of the history, physical exam, medical decision making, and the department course for this patient. I have also personally directed, reviewed, and agree with the discharge instructions and disposition. Disposition/Present on Arrival - Present on Arrival Any Indicators Present on Arrival: No History of DVT/PE: No History of Uncontrolled Diabetes: No Urinary Catheter: No History of Decub. Ulcer: No History Surgical Site Infection Following: None - Disposition Have Diagnosis and Disposition been Completed?: Yes Diagnosis: Chest pain, Near syncope Disposition: HOSPITALIZED Disposition Time: 02:30 Condition: STABLE
[2017-10-06 00:19] LABS: HEMOGLOBIN 11.1 g/dL (12.0-16.0); MEAN CELL VOLUME 85.1 fl (80.0-105.0); MEAN CORPUSCULAR HEMOGLOBIN 27.6 pg (25.0-35.0); MEAN CORPUSCULAR HGB CONC 32.5 g/dl (31.0-37.0); MEAN PLATELET VOLUME 9.4 fl (7.0-11.0); RBC 4.02 10^6/uL (3.5-6.1); RED CELL DISTRIBUTION WIDTH 15.1 % (11.5-14.5); WHITE BLOOD COUNT 9.3 10^3/ul (4.5-11.0)
[2017-10-06 00:25] LABS: INR 1.09 (0.93-1.08); PARTIAL THROMBOPLASTIN TIME 29.2 Seconds (25.1-36.5); PROTHROMBIN TIME 12.5 SECONDS (9.4-12.5)
[2017-10-06 00:34] LABS: ALB/GLOB RATIO 1.1 (1.1-1.8); ALBUMIN 3.9 g/dL (3.0-4.8); ALT/SGPT 26 U/L (7-56); AST/SGOT 35 U/L (14-36); BLOOD UREA NITROGEN 13 mg/dL (7-21); CALCIUM 8.8 mg/dL (8.4-10.5); GFR AFRICAN-AMERICAN > 60; GFR NON-AFRICAN AMERICAN > 60
[2017-10-06 00:42] LABS: TROPONIN I < 0.01 ng/mL
[2017-10-06 07:23] LABS: TROPONIN I < 0.01 ng/mL
--- NOTE | 2017-10-06 08:53 | RAD ---
Date of service: 10/05/2017 HISTORY: chest pain COMPARISON: No prior. FINDINGS: LUNGS: No active pulmonary disease. PLEURA: No significant pleural effusion identified, no pneumothorax apparent. CARDIOVASCULAR: Normal. OSSEOUS STRUCTURES: No significant abnormalities. VISUALIZED UPPER ABDOMEN: Normal. OTHER FINDINGS: None. IMPRESSION: No active disease.
--- NOTE | 2017-10-06 09:33 | CT ---
Date of service: 10/06/2017 PROCEDURE: CT HEAD WITHOUT CONTRAST. HISTORY: Dizzyness COMPARISON: Comparison made with CT scan brain 03/09/2018 TECHNIQUE: Axial computed tomography images were obtained through the head/brain without intravenous contrast. Radiation dose: Total exam DLP = 889.76 mGy-cm. This CT exam was performed using one or more of the following dose reduction techniques: Automated exposure control, adjustment of the mA and/or kV according to patient size, and/or use of iterative reconstruction technique. FINDINGS: HEMORRHAGE: No intracranial hemorrhage. BRAIN: No mass effect or edema. No atrophy or chronic microvascular ischemic changes. VENTRICLES: Unremarkable. No hydrocephalus. CALVARIUM: Unremarkable. PARANASAL SINUSES: Unremarkable as visualized. No significant inflammatory changes. MASTOID AIR CELLS: Unremarkable as visualized. No inflammatory changes. OTHER FINDINGS: None. IMPRESSION: No acute intracranial hemorrhage.
--- NOTE | 2017-10-06 10:14 | CARD ---
APPROVED REPORT Date of service: 10/05/2017 EKG Measurement Heart [id number] <Conclusion> Normal sinus rhythm Normal ECG
[2017-10-06] MEDS ORDERED: Pneumococcal 23-Valent Vaccine IM ONE (13:16)
--- NOTE | 2017-10-06 17:19 | CON ---
DATE: 10/06/2017 NEUROLOGY CONSULTATION CHIEF COMPLAINT: Near syncope. HISTORY OF PRESENT ILLNESS: This is a 37-year-old woman with no significant past medical history who came in for questionable intermittent midsternal chest pain, radiated down the right arm, which is atypical, has some lightheadedness and felt very dizzy associated with diffuse pressure headache. The patient has been under a lot of stress as she works in the post office and minimal sleep and she is dehydrated and has low systolic and diastolic blood pressure, which is responsible for her underlying near syncope. CAT scan of the head showed no acute intracranial abnormality. PAST MEDICAL HISTORY: As above. SOCIAL HISTORY: No illicit drug use, smoking or EtOH abuse. ALLERGIES: NO KNOWN DRUG ALLERGIES. MEDICATIONS: Reviewed by nurses' reconciliation sheet. FAMILY HISTORY: Noncontributory. PHYSICAL EXAMINATION: VITAL SIGNS: Temperature is 98, pulse rate 61, blood pressure 100/51, respiratory rate 18, oxygen saturation 98% on room air. GENERAL: The patient is sitting up in bed, in no acute distress. HEENT: Head is atraumatic and normocephalic. PERRLA. Extraocular muscles intact. NECK: Supple. No JVD. No adenopathy noted. LUNGS: Clear to auscultation. No adventitious sounds. HEART: S1 and S2, normal rate and rhythm. No murmur, rubs, or gallops. ABDOMEN: Soft, nontender, and nondistended. Bowel sounds present. EXTREMITIES: No clubbing. No cyanosis. Peripheral pulses 2+ felt bilaterally. NEUROLOGIC: The patient is alert, oriented to person, place, month and year. Speech is fluent without any errors. Cranial nerves II through XII intact. Motor: Moves all extremities equally. Toes are downgoing bilaterally. Sensory: Light touch, pinprick, proprioception, and vibration are intact. DTRs are 2+ throughout. Coordination: [id number] intact. No dysmetria noted. Gait is deferred for now. Pulmonary and Cardiology examinations unremarkable. LABORATORY DATA: Sodium is 140, potassium 3.9, chloride 105, carbon dioxide 24, BUN of 13, creatinine 0.5, random glucose 83. ASSESSMENT AND PLAN: This is a 37-year-old woman with no significant past medical history, came in for atypical chest pain, near syncope and diffuse pressure headache which is likely secondary to underlying stress and anxiety which is personal and job related components. In addition, she has near syncope secondary to hypoperfusion to the brain from low systolic and diastolic blood pressure and poor hydration. At this time, recommend; 1. Hydration throughout the day. 2. Keep systolic blood pressure between 98-120 systolic and diastolic 70-80. 3. Aspirin 81 mg p.o. daily for stroke prevention. 4. Cardiac Holter monitor and follow up with Cardiology. She is neurologically stable from my standpoint. Thank you for this consult. Miguel Mon MD
[2017-10-06 17:22] LABS: HDL CHOLESTEROL 60 mg/dL (29-60)
[2017-10-06 17:30] LABS: TROPONIN I < 0.01 ng/mL
[2017-10-06 17:32] LABS: LDL CHOLESTEROL 50 mg/dL (0-129)
--- NOTE | 2017-10-07 00:18 | CON ---
DATE: 10/06/2017 SERVICE: Cardiology. REASON FOR CONSULTATION AND FOLLOWUP: Cardiac evaluation, admitted with chest pain, headache, feels fine and feeling of passed out, dizzy. BRIEF CLINICAL HISTORY: This is a 37-year-old female with no significant past medical history, who is experiencing headache and tightness in the head and chest pain on lying down. Denies any chest pain on exertion with walking. Only feel chest on lying down with mild tenderness. PAST MEDICAL HISTORY: Nothing significant. SOCIAL HISTORY: Denies any history of alcohol. FAMILY HISTORY: Noncontributory. CURRENT MEDICATIONS: None. PHYSICAL EXAMINATION VITAL SIGNS: Height of the patient 5 feet, weight of the patient 250 pounds, body mass index is 44.3 kg/m2. Rest of the vitals, temperature afebrile, heart rate 61, blood pressure 160/51. HEENT: PERRLA, intact. NECK: Supple. No carotid bruit or thyromegaly. CHEST: Clear to auscultation. HEART: S1, S2 regular. ABDOMEN: Soft. EXTREMITIES: Clubbing and cyanosis negative. LABORATORY DATA: EKG shows normal sinus rhythm. No acute ST-T wave changes noted. WBC 9.3, hemoglobin 11.1, hematocrit 34.2, platelet count 356. Chemistry shows sodium 140, potassium 3.9, chloride 105, carbon dioxide 24, anion gap of 15, BUN 13, creatinine 0.5, troponin is 0.01. IMPRESSION: Atypical chest pain, tenderness, chest pain on lying down, obesity, complaining of tightness in the head and headache. RECOMMENDATIONS: Agreed to neuro evaluation. Order third sets of troponin. The patient can be discharge. We will get echo and a stress test as an outpatient. We will follow with you. We will get also TSH, lipid profile on next blood draw. As mentioned, the third sets troponin is negative, the patient can be discharge home. Follow up as an outpatient. Thank you Dr. Snider, for providing us the opportunity in taking care of the patient, Edwin Pryor. Kevin Oates MD
[2017-10-07 00:44] VITALS: RESP 20
[2017-10-07 07:20] LABS: TROPONIN I < 0.01 ng/mL
--- NOTE | 2017-10-07 07:58 | CP.PCM.PN ---
Subjective - Date & Time of Evaluation Date of Evaluation: 10/07/17 Time of Evaluation: 06:30 - Subjective Subjective: Awake, alert, denies chest pain Reason for consultation and follow up: cardiac evaluation for chest pain and near syncope, obese Seen and examined by me and Dr. Oates Objective - Vital Signs/Intake and Output Vital Signs (last 24 hours): Temp Pulse Resp BP Pulse Ox 98.1 F 56 L 20 91/41 L 99 10/07/17 00:00 10/07/17 00:00 10/07/17 00:00 10/07/17 00:00 10/07/17 00:00 Intake and Output: 10/07/17 10/07/17 06:59 18:59 Intake Total 300 Balance 300 - Medications Medications: Current Medications Aspirin (Ecotrin) 81 mg PO DAILY MALLIKA Famotidine (Pepcid) 20 mg PO HS MALLIKA Last Admin: 10/06/17 22:19 Dose: 20 mg - Labs Labs: PT 12.5 SECONDS (9.4-12.5) 10/06/17 00:02 INR 1.09 (0.93-1.08) H 10/06/17 00:02 APTT 29.2 Seconds (25.1-36.5) 10/06/17 00:02 - Constitutional Appears: No Acute Distress - Head Exam Head Exam: NORMOCEPHALIC - Eye Exam Eye Exam: Normal appearance - ENT Exam ENT Exam: Mucous Membranes Moist - Respiratory Exam Respiratory Exam: Clear to Ausculation Bilateral, NORMAL BREATHING PATTERN - Cardiovascular Exam Cardiovascular Exam: +S1, +S2 - GI/Abdominal Exam GI & Abdominal Exam: Soft, Normal Bowel Sounds - Extremities Exam Extremities Exam: Normal Capillary Refill - Neurological Exam Neurological Exam: Alert, Awake, Oriented x3 - Psychiatric Exam Psychiatric exam: Normal Affect - Skin Skin Exam: Intact, Normal Color, Warm Assessment and Plan - Assessment and Plan (Free Text) Assessment: A 37 year old female, who came in to the ER due to chest pain and near syncope. obese, denies any other medical problems. No work up done in [facility] [place]. Plan: Atypical chest pain Troponins normal Heart rate and blood pressure stable For Echo to evaluate LV function Out patient stress test Denies chest pain now, feels better Claimed to have a lot of issues at work and personal life Lifestyle modification Continue current treatment Continue current medications Wanted to go home Will follow up Plan and treatment discussed with Dr. Oates
[2017-10-07 08:52] VITALS: BP 120/62; PULSE 56; TEMP 97.3; O2SAT 100
--- NOTE | 2017-10-07 10:59 | CARD ---
APPROVED REPORT Date of service: 10/07/2017 EXAM: Two-dimensional and M-mode echocardiogram with Doppler and color Doppler. INDICATION Chest Pain 2D DIMENSIONS Left Atrium (2D)3.6 (1.6-4.0cm)IVSd1.1 (0.7-1.1cm) LVDd4.7 (3.9-5.9cm)PWd1.1 (0.7-1.1cm) LVDs3.2 (2.5-4.0cm)FS (%) 30.3 % LVEF (%)57.7 (>50%) M-Mode DIMENSIONS Aortic Root2.20 (2.2-3.7cm)Aortic Cusp Exc.1.60 (1.5-2.0cm) Aortic Valve AoV Peak Ymkyplcb349.0cm/Aiden Peak GR.8mmHg Mitral Valve MV E Byukkhiu268.0cm/sMV A Ntgeywtv29.8cm/sE/A ratio1.8 TDI E/Lateral E'0.0E/Medial E'0.0 Tricuspid Valve TR Peak Ghnkvjon075ea/sRAP [id number] Peak Gr.19mmHg [id number] LEFT VENTRICLE The left ventricle is normal size. There is normal left ventricular wall thickness. The left ventricular function is normal. The left ventricular ejection fraction is within the normal range. 58%. RIGHT VENTRICLE The right ventricle is normal size. The right ventricular systolic function is normal. ATRIA The left atrium size is normal. The right atrium size is normal. AORTIC VALVE The aortic valve is normal in structure. MITRAL VALVE The mitral valve is normal in structure. Mitral regurgitation is trace. TRICUSPID VALVE The tricuspid valve is normal in structure. There is mild tricuspid regurgitation. PERICARDIAL EFFUSION There is no pericardial effusion. <Conclusion> The right ventricular systolic function is normal. The right ventricle is normal size. The left ventricle is normal size. There is normal left ventricular wall thickness. The left ventricular function is normal. The left ventricular ejection fraction is within the normal range. 58%. The left atrium size is normal. The right atrium size is normal. The aortic valve is normal in structure. The mitral valve is normal in structure. Mitral regurgitation is trace. The tricuspid valve is normal in structure. There is mild tricuspid regurgitation. There is no pericardial effusion.
--- NOTE | 2017-10-08 08:02 | HP ---
Patient was seen and examined at the bedside on 10/06/2017. CHIEF COMPLAINT: Chest pain, history of nearly passing out, headache. HISTORY OF PRESENT ILLNESS: Ms. Roya Pineda is a 37-year-old female with no significant past medical history, came to the emergency department, complaining of chest pain, near syncope. Patient said that she has been experiencing intermittent sharp midsternal chest pain radiating down to her right arm for the past week. Patient noticed she feel dizzy, light headedness, near syncopal at times with associated headache. Patient denies fever, chills. No shortness of breath. No abdominal pain. No nausea, vomiting, diarrhea. No hematuria, hematochezia. PAST MEDICAL HISTORY: As above. FAMILY HISTORY: Father and mother, noncontributory. HABITS: Never smoked. No drugs, no ethanol. ALLERGIES: THE PATIENT IS NOT ALLERGIC TO ANY MEDICATIONS. REVIEW OF SYSTEMS: Patient was seen and examined at the bedside, looking comfortable. No fever. No chills. No shortness of breath. No coughing. Feeling chest pain and feeling of near syncope. No abdominal pain. No diarrhea. No nausea or vomiting. No dysuria, frequency, hematuria. No back pain or neck pain. No rashes. No headache or dizziness. PHYSICAL EXAMINATION: VITAL SIGNS: Temperature 98.1, pulse 55, respiratory rate 18, blood pressure 93/48, pulse oximetry 97. HEENT: Head: Normocephalic and atraumatic. Eyes: PERRLA. Extraocular muscles intact. Conjunctivae clear. Nose: Patent. Mucous membranes moist. NECK: Supple. No carotid bruit, JVD, or thyromegaly. CHEST: Bilaterally symmetrical. HEART: S1 and S2 positive. LUNGS: Clear to auscultation. ABDOMEN: Soft. Bowel sounds present. No organomegaly. EXTREMITIES: No edema. No cyanosis. NEUROLOGIC: Patient is awake and alert. Moving all four extremities. No focal deficit. LABORATORY DATA: White blood cell count 9.7, hemoglobin 11.1, hematocrit 34.2, platelets 356. Sodium 140, potassium 3.9, BUN 30, creatinine 0.5, glucose 83. Lactate dehydrogenase 291, 310, 301. Troponin less than 0.01 x4. ASSESSMENT AND PLAN: Ms. Roya Pineda, 37-year-old lady with anemia, came with chest pain, with no significant past medical history, headache, feeling of passing out. According to hat liner, patient has atypical chest pain, tenderness. Chest pain is more on lying down, obesity, complains tightness of head and headache. Three sets of troponin was done that was negative. Plan is to get echo and stress test as outpatient. Order TSH, lipid profile. Appreciate Dr. Oates's input. Seen by Dr. Miguel Mon also, neurologist. CAT scan of the head done, reviewed by me. According to neurologist, may be diffuse pressure headache, which is likely secondary to underlying stress and anxiety, which has personal and job related components. Her near syncope may be secondary to hypoperfusion to the brain from low systolic and diastolic blood pressure and poor hydration. Continue hydration throughout the day. Control the blood pressure. Aspirin given. Cardiac Holter monitor applied. Gastrointestinal, deep vein thrombosis prophylaxis. Repeat labs. We will follow up. Jihan Snider MD
== END 2017-10-07 15:26 | disposition home or self-care (01) ==
LOC: ED 19:18 → ERH 10-06 02:28 → 3RSO 10-06 15:18
PROVIDERS: ADMIT Internal Medicine; ATTEND Internal Medicine
DX: R07.89 Other chest pain (principal); R55 Syncope and collapse; E66.9 Obesity, unspecified; D64.9 Anemia, unspecified
CPT/HCPCS: 36415; 70450; 71045; 80053; 80061; 82550; 83615; 84443; 84484; 85027; 85610; 85730; 93005; 93306; 99285; G0378